=== PATIENT | female | born 1980 | race African-American/Black ===

== ENCOUNTER 2019-04-17 11:28 | Emergency (ER) | payer MEDICAID, MEDICARE ==
[~2019-04-17] VITALS: Ht 160 cm; Wt 103.0 kg
[~2019-04-17 11:28] MED LIST: PHEN100C4 PO
[2019-04-17 11:52] VITALS: BP 130/80
== END 2019-04-17 12:43 | disposition home or self-care (01) ==
LOC: ER 11:28
DX: J31.0 Chronic rhinitis (principal); R56.9 Unspecified convulsions
CPT/HCPCS: 81025; 99282

== ENCOUNTER 2022-05-19 06:31 | Emergency (ER) | payer MEDICAID, MEDICARE ==
[~2022-05-19] VITALS: Ht 160 cm; Wt 119.0 kg
[2022-05-19 06:38] VITALS: BP 134/77
[2022-05-19] MEDS ORDERED: ACETAMINOPHEN 325MG TABLET PO ONE (07:30)
[2022-05-19] MEDS ORDERED: TOPUD PO (08:37)
== END 2022-05-19 09:34 | disposition home or self-care (01) ==
LOC: ER 06:31
DX: M17.0 Bilateral primary osteoarthritis of knee (principal); R56.9 Unspecified convulsions; Z98.890 Other specified postprocedural states
CPT/HCPCS: 73560; 99283; Z7610